=== PATIENT | male | born 2000 | race Caucasian/White ===

== ENCOUNTER 2023-04-30 23:10 | Emergency (ER) | payer OTHER ==
[~2023-04-30] VITALS: Ht 177 cm; Wt 65.8 kg
[2023-04-30 23:10] VITALS: BP 115/72
[~2023-04-30 23:10] MED LIST: AMOX500C2 PO; CONCERTA
[2023-04-30] MEDS ORDERED: ONDANSETRON 4 MG ORAL DISSOLVE TABLET PO STA (23:13)
--- NOTE | 2023-04-30 23:20 | ED General ---
General Source of Information: Patient, Police Exam Limitations: Intoxication History of Present Illness Date Seen by Provider: Apr 30, 2023 Time Seen by Provider: 23:10 Initial Comments 23-year-old male presenting with law enforcement after he was found intoxicated in his vehicle. He admitted to drinking 8 beers tonight and smoking some marijuana. He denies any chronic medical problems and denies any allergies to medicines or prescription medicines that he is taking regularly. He has had nausea and vomiting with the officer and continues here in the emergency department. He was evaluated by EMS on scene and had refused IV or IV nausea medicine. Modifying Factors: worse with Other (Alcohol) Associated Systoms: No Chest Pain, No Cough, No Diaphoresis, No Fever/Chills; Nausea/Vomiting; No Shortness of Air, No Syncope Allergies and Home Medications Allergies Coded Allergies: No Known Drug Allergies (Unverified , 04/30/23) Patient Home Medication List Home Medication List Reviewed: Yes Amoxicillin (Amoxicillin) 500 Mg Capsule, 1 EACH PO BID Prescribed by: KALYAN PEARCE on 05/10/142240 [Concerta] , (Reported) Entered as Reported by: MAJOR MARIANO on 05/10/142215 Review of Systems Review of Systems Constitutional: see HPI EENTM: no symptoms reported Respiratory: no symptoms reported Cardiovascular: no symptoms reported Gastrointestinal: see HPI Genitourinary: no symptoms reported Musculoskeletal: no symptoms reported Skin: no symptoms reported Past Qmgldaf-Sixfyy-Vcojco Hx Patient Social History Tobacco Use?: Yes Tobacco type used: Cigarettes Substance use?: Yes Substance type: Marijuana Alcohol Use?: Yes Alcohol type: Beer Immunizations Up To Date Tetanus Booster (TDap): Unknown Past Medical History Reproductive Disorders: No Sexually Transmitted Disease: No HIV/AIDS: No ADD/ADHD Adverse Reaction/Blood Tranf: No Physical Exam Vital Signs Capillary Refill : Height, Weight, BMI Height: 4'5" Weight: 76lbs. oz. 34.565310te; BMI Method: General Appearance: Other (Patient with nausea and vomiting here in the ED, appears intoxicated) HEENT: PERRL/EOMI, Pharynx Normal, Moist Mucous Membranes Neck: Full Range of Motion, Normal Inspection, Non Tender, Supple Respiratory: Chest Non Tender, Lungs Clear, Normal Breath Sounds, No Accessory Muscle Use, No Respiratory Distress Cardiovascular: Regular Rate, Rhythm, Normal Peripheral Pulses Gastrointestinal: Normal Bowel Sounds, No Pulsatile Mass, Non Tender, Soft Extremity: Normal Capillary Refill, No Pedal Edema Neurologic/Psychiatric: Alert, Oriented x3 Skin: Normal Color, Warm/Dry Progress/Results/Core Measures Suspected Sepsis SIRS Temperature: Pulse: Respiratory Rate: Blood Pressure / Mean: Results/Orders My Orders Orders - NEHEMIAS ZARAGOZA MD Ondansetron Oral Dissolve Tab (Ondanset (04/30/23 23:13) Vital Signs/I&O Capillary Refill : Progress Note : Progress Note Patient ambulated into the department accompanied by . Patient refused blood draw and refused oral Zofran ODT to help with his nausea and vomiting. His vital signs are stable with Blood pressure 115/72, Heart rate 92 bpm and regular, Respiratory rate 16, 99% oxygen saturation on room air. He is afebrile with temperature 98.8 F. He is awake and alert and able to answer questions and refuse treatment. He is medically clear and stable to go with law enforcement for incarceration. Drink more fluids to stay hydrated and follow up with clinic for continued concerns. He ambulated out to the deputy's vehicle with a steady gait. Departure Impression Primary Impression: Alcohol intoxication Qualified Codes: F10.920 - Alcohol use, unspecified with intoxication, uncomplicated Additional Impressions: Nausea and vomiting in adult Medical clearance for incarceration Disposition: 01 HOME, SELF-CARE Condition: Stable Departure-Patient Inst. Decision time for Depature: 23:19 Referrals: DA SILVA MD NO,LOCAL PHYSICIAN (PCP) Primary Care Physician Patient Instructions: Alcohol Intoxication ED, Nausea and Vomiting, Adult ED Add. Discharge Instructions: Medically stable and clear for incarceration Drink plenty of water and electrolyte drinks to stay hydrated. Follow up with clinic for continued concerns. NEHEMIAS ZARAGOZA MD Apr 30, 2023 23:20
== END 2023-04-30 23:25 | disposition home or self-care (01) ==
LOC: EDUNIT# 23:10 → ER FS 23:12
DX: F10.129 Alcohol abuse with intoxication, unspecified (principal); F17.210 Nicotine dependence, cigarettes, uncomplicated
CPT/HCPCS: 99281